=== PATIENT | male | born 1975 | race Two or more races ===

== ENCOUNTER 2019-10-04 10:56 | Emergency (ER) | payer MEDICAID, OTHER ==
[~2019-10-04] VITALS: Ht 165.1 cm; Wt 57.0 kg
[2019-10-04] MEDS ORDERED: MORPHINE SULFATE 4 MG/ML, 1ML ONE (11:44)
[2019-10-04] MEDS ORDERED: ONDANSETRON 2MG/ML, 2ML ONE (11:44)
--- NOTE | 2019-10-04 11:50 | NUR ---
IV PLACED, LABS DRAWN WITH START. PT MEDICATED FOR 8/10 R ELBOW PAIN. BP CUFF, PULSE OX IN PLACE. PT EXPRESSES IMMEDIATE DECREASE IN PAIN FOLLOWING MORPHINE ADMINISTRATION. CALL LIGHT WITHIN REACH, FAMILY AT BS. XR AT BS.
[2019-10-04] MEDS ORDERED: MORPHINE SULFATE 4 MG/ML, 1ML IVPush PRN (12:00)
[2019-10-04] MEDS ORDERED: SODIUM CHLORIDE FLUSH 10ML SYR IVF ONE (12:00)
[2019-10-04] MEDS ORDERED: ONDANSETRON 2MG/ML, 2ML IVPush ONE (12:00)
--- NOTE | 2019-10-04 12:18 | NUR ---
XR READ BACK, PT FOR RECHECK.
[2019-10-04] MEDS ORDERED: PROPOFOL 10 MG/ML, 20ML ONE (12:29)
[2019-10-04] MEDS ORDERED: FENTANYL PF 100 MCG/2ML ONE (12:30)
--- NOTE | 2019-10-04 12:41 | NUR ---
REPORT TO TASK ULYSSES SANTOS TO ASSIST WITH PROCEDURAL SEDATION.
--- NOTE | 2019-10-04 12:55 | NUR ---
Rolando Steele RN taking care of pt during procedural sedation. Please refer to his notes for care during that time.
--- NOTE | 2019-10-04 12:57 | NUR ---
REPORT TO DERIK ARORA, TRANSFER OF CARE AT THIS TIME.
[2019-10-04] MEDS ORDERED: FENTANYL PF 100 MCG/2ML IVPush ONE (13:00)
[2019-10-04] MEDS ORDERED: PROPOFOL 10 MG/ML, 20ML IVPush ONE (13:00)
--- NOTE | 2019-10-04 13:20 | NUR ---
After consent, team time out performed with no concerns. Patient sedated with 50mcg of fentanyl and a total of 70mg of Propofol. Once sufficient sedation reached provider able to easilly reduce right elbow dislocation EMT then placed right elbow posterior splint and sling. CMS remained intact Patient continually monitored until SS back to normal (14). Patient then swallow screened and ambulated (no abnormalities) Report to Maximo (taking over care before discharge)
--- NOTE | 2019-10-04 13:28 | NUR ---
Pt not ambulating well yet, pt also has small generalized rash on chest. Will monitor for 30 minutes more.
[2019-10-04 14:22] VITALS: BP 124/68
== END 2019-10-04 14:24 | disposition home or self-care (01) ==
LOC: ED 12:11
DX: S53.124A Posterior dislocation of right ulnohumeral joint, initial encounter (principal); X58.XXXA Exposure to other specified factors, initial encounter; Y93.89 Activity, other specified; Y92.098 Other place in other non-institutional residence as the place of occurrence of the external cause; Y99.8 Other external cause status
CPT/HCPCS: 24600; 73070; 73080; 96374; 96375; 99285; J2270; J2405; J2704; J3010

== ENCOUNTER 2020-06-19 08:45 | Emergency (ER) | payer MEDICAID ==
[~2020-06-19] VITALS: Ht 157.5 cm; Wt 58.0 kg
--- NOTE | 2020-06-19 08:54 | NUR ---
Pt to room from triage, ambulatory with steady gait.
[2020-06-19] MEDS ORDERED: FENTANYL PF 100 MCG/2ML ONE (09:11)
--- NOTE | 2020-06-19 09:13 | NUR ---
Pt ambulatory to xray at this time.
--- NOTE | 2020-06-19 09:23 | NUR ---
Pt back from xray, resting in bed. Rates R elbow pain 12/01. CMS intact in R UE
[2020-06-19] MEDS ORDERED: FENTANYL PF 100 MCG/2ML IVPush ONE (09:30)
[2020-06-19] MEDS ORDERED: SODIUM CHLORIDE FLUSH 10ML SYR IVF ONE (09:30)
--- NOTE | 2020-06-19 09:32 | NUR ---
Pt medicated per JUN for pain. Dr. Edwards updated on this.
[2020-06-19] MEDS ORDERED: PROPOFOL 10 MG/ML, 20ML IVPush ONE (10:00)
[2020-06-19] MEDS ORDERED: PROPOFOL 10 MG/ML, 20ML ONE (10:07)
--- NOTE | 2020-06-19 10:09 | NUR ---
Set up room for procedural sedation to reset R elbow. Medication and paperwork at bedside ready for procedure. See print out sheet for vitals.
--- NOTE | 2020-06-19 10:26 | NUR ---
SEDATION COMPLETE. RIGHT ELBOW RESET. PT TOLERATING WELL. WILL CONTINUE TO MONITOR
[2020-06-19] MEDS ORDERED: KETOROLAC 30 MG/1 ML IVPush ONE (10:30)
--- NOTE | 2020-06-19 10:38 | NUR ---
REPORT RECIVED. PT SAID TO BE AT [facility] PRESEDATION. VSS. STATES 12/01 PAIN. PT SITTING UP A&O 4
[2020-06-19] MEDS ORDERED: KETOROLAC 30 MG/1 ML ONE (10:42)
--- NOTE | 2020-06-19 10:47 | NUR ---
ADMIN PAIN MEDS
[2020-06-19 11:30] VITALS: BP 109/67
== END 2020-06-19 11:34 | disposition home or self-care (01) ==
LOC: ED 09:29
DX: S53.124A Posterior dislocation of right ulnohumeral joint, initial encounter (principal); X58.XXXA Exposure to other specified factors, initial encounter; Y93.89 Activity, other specified; Y92.89 Other specified places as the place of occurrence of the external cause; Y99.8 Other external cause status
CPT/HCPCS: 24600; 73080; 96374; 99152; 99285; J1885; J2704; J3010